=== PATIENT | male | born 1970 | race Caucasian/White ===

== ENCOUNTER 2016-12-17 11:57 | Emergency (ER) | payer OTHER ==
--- NOTE | 2016-12-17 13:22 | EDDOCDS ---
Nurse's Notes [facility] Name: Joseph Bashir Age: 46 yrs Sex: Male : 1970 Arrival Date: 12/17/2016 Time: 11:57 Bed TR7 Private MD: NO PRIMARY PHYSICIAN, . Diagnosis: Headache-pain in right ear. Presentation: 12/17 12:04 Presenting complaint: Patient states: for past week, right ear pressure, draining blood srm and pus, a lot of pressure. Adult Sepsis Screening: The patient does not have new or worsening altered mentation. Patient's respiratory rate is less than 22. Systolic blood pressure is greater than 100. Patient has a qSOFA score of 0- Negative Sepsis Screen. Suicide/Homicide risk assessment- the patient denies having any suicidal and/or homicidal ideations and does not present with any other emotional, behavioral or mental health complaints. Status: Patient is not a social service worker or dependent. Transition of care: patient was not received from another setting of care. 12:04 Acuity: CHRIS Level 4 srm 12:04 Method Of Arrival: Walkin/Carried/Asstd srm Triage Assessment: 12:07 General: Appears in no apparent distress, Behavior is appropriate for age, cooperative. srm Pain: Pain currently is 6 out of 10 on a pain scale. EENT: Reports right ear pain, pressure, drainage . 12:08 Pt Declines HIV testing. srm Historical: - Allergies: no known allergies; - Home Meds: 1. Sertraline 100 mg daily - PMHx: PTSD; - PSHx: bilateral shoulder; right knee arthroscopic; left knee x2; Appendectomy; - Social history: Smoking status: Patient states was never smoker of tobacco. No barriers to communication noted, The patient speaks fluent Welsh, Speaks appropriately for age. - Family history: Not pertinent. - : The pt / caregiver states he / she is not on anticoagulants. Home medication list is obtained from the patient. - Exposure Risk Screening:: None identified. Screenin:18 Screening information is obtained from the patient. Fall risk: No risks identified. srm Assistance ADL's: requires no assistance with activities of daily living. Abuse/DV Screen: The patient / caregiver reports he/she is: not in a situation that causes fear, pain or injury. Nutritional screening: No deficits noted. home support is adequate. 13:21 Advance Directives: Currently, there is no health care proxy. There is no active DNR srm order. Assessment: 13:18 General: Appears in no apparent distress, Behavior is appropriate for age, cooperative. srm EENT: Reports right ear pain, pressure, drainage. Vital Signs: 11:59 BP 167 / 111; Pulse 79; Resp 18 S; Temp 97.5(O); Pulse Ox 99% on R/A; Weight 134.72 kg gr2 (R); Height 6 ft. 1 in. (185.42 cm) (R); Pain 6/10; 11:59 Body Mass Index 39.18 (134.72 kg, 185.42 cm) gr2 Vitals: 11:59 Log In Time: December 17, 2016 at 11:59. gr2 ED Course: 11:58 Patient visited by Giuseppe Gan. gr2 11:58 Patient moved to Waiting gr2 11:59 NO PRIMARY PHYSICIAN, . is Private Physician. gr2 12:02 Patient visited by Giuseppe Gan. gr2 12:02 Patient moved to Pre RCE gr2 12:05 Triage Initiated srm 12:47 Martinez Odom PA-C is PHCP. cc10 12:47 Rakan Avendano MD is Attending Physician. cc10 12:47 Patient moved to Triage 1 kr3 12:47 Patient moved to Triage 3 kr3 12:56 Patient visited by Martinez Odom PA-C. cc10 12:56 Patient visited by Martinez Odom PA-C. cc10 13:09 Clemente Alexis is Referral Physician. cc10 13:15 Patient moved to TR7 ar3 13:18 Patient name changed from Joseph\S\L\S\Winistoerfer\S\ to Joseph\S\Lawrencec\S\Winistoerfer. EDMS 13:18 The patient / caregiver is instructed regarding the plan of care and ED course. Patient srm has correct armband on for positive identification. 13:18 No IV's were initiated during this patient's visit. No procedures done that require srm assistance. Order Results: There are currently no results for this order. Outcome: 13:09 Discharge ordered by Provider. cc10 13:18 Discharge Assessment: Patient awake, alert and oriented x 3. No cognitive and/or srm functional deficits noted. Patient verbalized understanding of disposition instructions. patient administered narcotics - no. The following High Risk Discharge criteria are identified: None. Discharged to to ENT office. Condition: stable. Discharge instructions given to patient, Instructed on discharge instructions, follow up and referral plans. No special radiology studies were completed. Property :Personal belongings accompany Pt. 13:21 Patient left the ED. srm Signatures: Dispatcher [employer] EDMS Katharine Echevarria RN RN srm Robie, Kathleen, RN RN 3 Kristy Call, DERIK PLATE PRINTER ar3 Giuseppe Gan gr2 Martinez Odom, PA-C PA-C cc10 MTDD
--- NOTE | 2016-12-17 13:22 | EDDOCDS ---
Physician Documentation [facility] Name: Joseph Bashir Age: 46 yrs Sex: Male : 1970 Arrival Date: 12/17/2016 Time: 11:57 Bed TR7 Private MD: NO PRIMARY PHYSICIAN, . Disposition: 12/17/16 13:09 Discharged to Home/Self Care. Impression: Headache - pain in right ear. . - Condition is Stable. - Discharge Instructions: Otitis Externa. - Medication Reconciliation form. - Follow up: Emergency Department; When: As needed. Follow up: Clemente Alexis; When: Today; Reason: Recheck today's complaints, Continuance of care. - Problem is an ongoing problem. - Symptoms are unchanged. - Notes: Please go directly to the ENT office. Historical: - Allergies: no known allergies; - Home Meds: 1. Sertraline 100 mg daily - PMHx: PTSD; - PSHx: bilateral shoulder; right knee arthroscopic; left knee x2; Appendectomy; - Social history: Smoking status: Patient states was never smoker of tobacco. No barriers to communication noted, The patient speaks fluent Sami, Speaks appropriately for age. - Family history: Not pertinent. - : The pt / caregiver states he / she is not on anticoagulants. Home medication list is obtained from the patient. - Exposure Risk Screening:: None identified. Vital Signs: 12/17 11:59 BP 167 / 111; Pulse 79; Resp 18 S; Temp 97.5(O); Pulse Ox 99% on R/A; Weight 134.72 kg gr2 / 297.01 lbs (R); Height 6 ft. 1 in. (185.42 cm) (R); Pain 6/10; 11:59 Body Mass Index 39.18 (134.72 kg, 185.42 cm) gr2 Signatures: Katharine Echevarria, LEONARDO RN srm Martinez Odom PA-C PASherlyn cc10 MTDD
--- NOTE | 2016-12-19 14:22 | EDDOCDS ---
Physician Documentation [facility] Name: Joseph Porter Age: 46 yrs Sex: Male : 1970 Arrival Date: 12/17/2016 Time: 11:57 Bed TR7 Private MD: NO PRIMARY PHYSICIAN, . Disposition: 12/17/16 13:09 Discharged to Home/Self Care. Impression: Headache - pain in right ear. . - Condition is Stable. - Discharge Instructions: Otitis Externa. - Medication Reconciliation form. - Follow up: Emergency Department; When: As needed. Follow up: Clemente Alexis; When: Today; Reason: Recheck today's complaints, Continuance of care. - Problem is an ongoing problem. - Symptoms are unchanged. - Notes: Please go directly to the ENT office. Historical: - Allergies: no known allergies; - Home Meds: 1. Sertraline 100 mg daily - PMHx: PTSD; - PSHx: bilateral shoulder; right knee arthroscopic; left knee x2; Appendectomy; - Social history: Smoking status: Patient states was never smoker of tobacco. No barriers to communication noted, The patient speaks fluent Sami, Speaks appropriately for age. - Family history: Not pertinent. - : The pt / caregiver states he / she is not on anticoagulants. Home medication list is obtained from the patient. - Exposure Risk Screening:: None identified. Vital Signs: 12/17 11:59 BP 167 / 111; Pulse 79; Resp 18 S; Temp 97.5(O); Pulse Ox 99% on R/A; Weight 134.72 kg gr2 / 297.01 lbs (R); Height 6 ft. 1 in. (185.42 cm) (R); Pain 6/10; 11:59 Body Mass Index 39.18 (134.72 kg, 185.42 cm) gr2 MDM: 14:51 [facility] Payment Agreement was scanned into [employer] and attached to record. 12/18 14:18 T-Sheet-- Draft Copy was scanned into [employer] and attached to record. gb Signatures: Katharine Echevarria RN RN marilee Ugaled, Angella, Reg Reg gb Alessandro Bennett, Reg Reg lg Martinez Odom, PA-C PA-C cc10 The chart was reviewed and I authenticate all verbal orders and agree with the evaluation and treatment provided.Attachments: 12/17 14:51 [facility]-EM Payment Agreement lg 12/18 14:18 T-Sheet-- Draft Copy gb Chart Complete MTDD
--- NOTE | 2016-12-19 14:22 | EDDOCDS ---
Nurse's Notes [facility] Name: Joseph Porter Age: 46 yrs Sex: Male : 1970 Arrival Date: 12/17/2016 Time: 11:57 Bed TR7 Private MD: NO PRIMARY PHYSICIAN, . Diagnosis: Headache-pain in right ear. Presentation: 12/17 12:04 Presenting complaint: Patient states: for past week, right ear pressure, draining blood srm and pus, a lot of pressure. Adult Sepsis Screening: The patient does not have new or worsening altered mentation. Patient's respiratory rate is less than 22. Systolic blood pressure is greater than 100. Patient has a qSOFA score of 0- Negative Sepsis Screen. Suicide/Homicide risk assessment- the patient denies having any suicidal and/or homicidal ideations and does not present with any other emotional, behavioral or mental health complaints. Status: Patient is not a services mgr or dependent. Transition of care: patient was not received from another setting of care. 12:04 Acuity: CHRIS Level 4 srm 12:04 Method Of Arrival: Walkin/Carried/Asstd srm Triage Assessment: 12:07 General: Appears in no apparent distress, Behavior is appropriate for age, cooperative. srm Pain: Pain currently is 6 out of 10 on a pain scale. EENT: Reports right ear pain, pressure, drainage . 12:08 Pt Declines HIV testing. srm Historical: - Allergies: no known allergies; - Home Meds: 1. Sertraline 100 mg daily - PMHx: PTSD; - PSHx: bilateral shoulder; right knee arthroscopic; left knee x2; Appendectomy; - Social history: Smoking status: Patient states was never smoker of tobacco. No barriers to communication noted, The patient speaks fluent Spanish, Speaks appropriately for age. - Family history: Not pertinent. - : The pt / caregiver states he / she is not on anticoagulants. Home medication list is obtained from the patient. - Exposure Risk Screening:: None identified. Screenin:18 Screening information is obtained from the patient. Fall risk: No risks identified. srm Assistance ADL's: requires no assistance with activities of daily living. Abuse/DV Screen: The patient / caregiver reports he/she is: not in a situation that causes fear, pain or injury. Nutritional screening: No deficits noted. home support is adequate. 13:21 Advance Directives: Currently, there is no health care proxy. There is no active DNR srm order. Assessment: 13:18 General: Appears in no apparent distress, Behavior is appropriate for age, cooperative. srm EENT: Reports right ear pain, pressure, drainage. Vital Signs: 11:59 BP 167 / 111; Pulse 79; Resp 18 S; Temp 97.5(O); Pulse Ox 99% on R/A; Weight 134.72 kg gr2 (R); Height 6 ft. 1 in. (185.42 cm) (R); Pain 6/10; 11:59 Body Mass Index 39.18 (134.72 kg, 185.42 cm) gr2 Vitals: 11:59 Log In Time: December 17, 2016 at 11:59. gr2 ED Course: 11:58 Patient visited by Giuseppe Gan. gr2 11:58 Patient moved to Waiting gr2 11:59 NO PRIMARY PHYSICIAN, . is Private Physician. gr2 12:02 Patient visited by Giuseppe Gan. gr2 12:02 Patient moved to Pre RCE gr2 12:05 Triage Initiated srm 12:47 Martinez Odom PA-C is PHCP. cc10 12:47 Rakan Avendano MD is Attending Physician. cc10 12:47 Patient moved to Triage 1 kr3 12:47 Patient moved to Triage 3 kr3 12:56 Patient visited by Martinez Odom PA-C. cc10 12:56 Patient visited by Martinez Odom PA-C. cc10 13:09 Clemente Alexis is Referral Physician. cc10 13:15 Patient moved to TR7 ar3 13:18 Patient name changed from Joseph\S\L\S\Winistoerfer\S\ to Joseph\S\Lawrencec\S\Winistoerfer. EDMS 13:18 The patient / caregiver is instructed regarding the plan of care and ED course. Patient srm has correct armband on for positive identification. 13:18 No IV's were initiated during this patient's visit. No procedures done that require srm assistance. 14:51 [facility] [place] Agreement was scanned into [email or web address] and attached to record. 12/18 07:48 Patient name changed from Joseph\S\Lawrencec\S\Winistoerfer\S\ to Joseph\S\Brayan\S\Pillooerfor. EDMS 14:18 T-Sheet-- Draft Copy was scanned into [email or web address] and attached to record. Order Results: There are currently no results for this order. Outcome: 12/17 13:09 Discharge ordered by Provider. cc10 13:18 Discharge Assessment: Patient awake, alert and oriented x 3. No cognitive and/or srm functional deficits noted. Patient verbalized understanding of disposition instructions. patient administered narcotics - no. The following High Risk Discharge criteria are identified: None. Discharged to to ENT office. Condition: stable. Discharge instructions given to patient, Instructed on discharge instructions, follow up and referral plans. No special radiology studies were completed. Property :Personal belongings accompany Pt. 13:21 Patient left the ED. srm Signatures: Dispatcher [employer] EDMS Katharine Echevarria, RN RN srm Angella Ugalde, Reg Reg gb Alessandro Bennett, Reg Reg lg Lori Cardoso,RN RN kr3 Kristy Call, JACK STRIP ASSEMBLER JACK STRIP ASSEMBLER ar3 Giuseppe Gan gr2 Martinez Odom, PA-Migdalia PA-C cc10 Chart Complete MTDD
--- NOTE | 2016-12-19 14:22 | EDDOCDS ---
Physician Documentation [facility] Name: Joseph Porter Age: 46 yrs Sex: Male : 1970 Arrival Date: 12/17/2016 Time: 11:57 Bed TR7 Private MD: NO PRIMARY PHYSICIAN, . Disposition: 12/17/16 13:09 Discharged to Home/Self Care. Impression: Headache - pain in right ear. . - Condition is Stable. - Discharge Instructions: Otitis Externa. - Medication Reconciliation form. - Follow up: Emergency Department; When: As needed. Follow up: Clemente Alexis; When: Today; Reason: Recheck today's complaints, Continuance of care. - Problem is an ongoing problem. - Symptoms are unchanged. - Notes: Please go directly to the ENT office. Historical: - Allergies: no known allergies; - Home Meds: 1. Sertraline 100 mg daily - PMHx: PTSD; - PSHx: bilateral shoulder; right knee arthroscopic; left knee x2; Appendectomy; - Social history: Smoking status: Patient states was never smoker of tobacco. No barriers to communication noted, The patient speaks fluent Occitan, Speaks appropriately for age. - Family history: Not pertinent. - : The pt / caregiver states he / she is not on anticoagulants. Home medication list is obtained from the patient. - Exposure Risk Screening:: None identified. Vital Signs: 12/17 11:59 BP 167 / 111; Pulse 79; Resp 18 S; Temp 97.5(O); Pulse Ox 99% on R/A; Weight 134.72 kg gr2 / 297.01 lbs (R); Height 6 ft. 1 in. (185.42 cm) (R); Pain 6/10; 11:59 Body Mass Index 39.18 (134.72 kg, 185.42 cm) gr2 MDM: 14:51 [facility] Payment Agreement was scanned into [employer] and attached to record. 12/18 14:18 T-Sheet-- Draft Copy was scanned into [employer] and attached to record. gb Signatures: Katharine Echevarria RN RN marilee Ugalde, Angella, Reg Reg gb Alessandro Bennett, Reg Reg lg Martinez Odom, PA-C PA-C cc10 The chart was reviewed and I authenticate all verbal orders and agree with the evaluation and treatment provided.Attachments: 12/17 14:51 [place] Payment Agreement lg 12/18 14:18 T-Sheet-- Draft Copy gb Chart Complete MTDD
== END 2016-12-17 13:21 | disposition home or self-care (01) ==
LOC: M ED 11:57
DX: R51 Headache (principal); H92.01 Otalgia, right ear; F43.10 Post-traumatic stress disorder, unspecified; Z79.899 Other long term (current) drug therapy